=== PATIENT | male | born 1975 | race Caucasian/White ===

== ENCOUNTER 2017-09-25 15:38 | Emergency (ER) | payer BC ==
[2017-09-25 15:42] VITALS: BP 123/81; PULSE 116; RESP 20; TEMP 97.9; O2SAT 100
--- NOTE | 2017-09-25 16:56 | C.PDOC ---
Time Seen by Provider: 09/25/17 16:04 Chief Complaint (Nursing): Substance Abuse Past Medical History Vital Signs: Last Vital Signs Temp 97.9 F 09/25/17 15:40 Pulse 116 H 09/25/17 15:40 Resp 20 09/25/17 15:40 BP 123/81 09/25/17 15:40 Pulse Ox 100 09/25/17 15:40 - Social History Hx Alcohol Use: Yes Hx Substance Use: No - Immunization History Hx Tetanus Toxoid Vaccination: No Hx Influenza Vaccination: No ED Course And Treatment O2 Sat by Pulse Oximetry: 100 Disposition - Disposition Referrals: Crow Morin MD [Staff Provider] - Disposition: HOME/ ROUTINE Condition: STABLE Additional Instructions: follow up with Dr. Morin in 2 days call to make an appointment return to ER if symptoms worsens or progress Instructions: Alcohol Abuse and Alcoholism (DC) Forms: General Discharge Instructions, [facility] ([place]) - Clinical Impression Clinical Impression: Alcohol abuse
--- NOTE | 2017-09-25 16:56 | C.PDOC ---
History Of Present Illness 42 y/o male presents for alcohol abuse. States that his last drink was 1 week ago. Requesting a note to go back to work. Denies any suicidal ideation, homicidal ideation, or hallucinations. Time Seen by Provider: 09/25/17 16:04 Chief Complaint (Nursing): Substance Abuse History Per: Patient History/Exam Limitations: no limitations Past Medical History Reviewed: Historical Data, Nursing Documentation, Vital Signs Vital Signs: Last Vital Signs Temp 97.9 F 09/25/17 15:40 Pulse 116 H 09/25/17 15:40 Resp 20 09/25/17 15:40 BP 123/81 09/25/17 15:40 Pulse Ox 100 09/25/17 16:57 - Medical History PMH: No Chronic Diseases Other PMH: Alcohol abuse Surgical History: No Surg Hx Family History: States: No Known Family Hx - Social History Hx Alcohol Use: Yes Hx Substance Use: No - Immunization History Hx Tetanus Toxoid Vaccination: No Hx Influenza Vaccination: No Review Of Systems Except As Marked, All Systems Reviewed And Found Negative. Physical Exam - Physical Exam Appears: Non-toxic, No Acute Distress Skin: Normal Color, Warm, Dry Head: Atraumatic, Normacephalic Eye(s): bilateral: Normal Inspection, PERRL, EOMI Nose: Normal Oral Mucosa: Moist Neck: Normal ROM, Supple Chest: Symmetrical Cardiovascular: Rhythm Regular, No Murmur Respiratory: Normal Breath Sounds, No Accessory Muscle Use Gastrointestinal/Abdominal: Soft, No Tenderness, No Distention Extremity: Bilateral: Atraumatic, Normal Color And Temperature, Normal ROM Neurological/Psych: Oriented x3, Normal Speech Gait: Steady ED Course And Treatment O2 Sat by Pulse Oximetry: 100 (RA) Pulse Ox Interpretation: Normal Medical Decision Making Medical Decision Making: Initial Impression: Alcohol abuse Time: 16:40 Plan: Crisis to provide list of rehab resources. Patient is not in withdrawal or showing signs of DTs on examination. Will discharge at this time. Patient instructed to follow up with rehab facility and primary doctor. Disposition Counseled Patient/Family Regarding: Diagnosis, Need For Followup - Disposition Referrals: Crow Morin MD [Staff Provider] - Disposition: HOME/ ROUTINE Disposition Time: 16:51 Condition: STABLE Additional Instructions: follow up with Dr. Morin in 2 days call to make an appointment return to ER if symptoms worsens or progress Instructions: Alcohol Abuse and Alcoholism (DC) Forms: General Discharge Instructions, [facility] ([place]) - POA Present On Arrival: None - Clinical Impression Clinical Impression: Alcohol abuse - Scribe Statement The provider has reviewed the documentation as recorded by the Nemo Basurto Provider Attestation: All medical record entries made by the Michaelibandres were at my direction and personally dictated by me. I have reviewed the chart and agree that the record accurately reflects my personal performance of the history, physical exam, medical decision making, and the department course for this patient. I have also personally directed, reviewed, and agree with the discharge instructions and disposition.
== END 2017-09-25 17:01 | disposition home or self-care (01) ==
LOC: C.ER 15:38
DX: F10.10 Alcohol abuse, uncomplicated (principal); Y90.9 Presence of alcohol in blood, level not specified

== ENCOUNTER 2018-11-04 10:00 | Emergency (ER) | payer SELFPAY ==
[2018-11-04 11:21] VITALS: BP 124/74; PULSE 84; RESP 16; TEMP 98.6; O2SAT 97
--- NOTE | 2018-11-04 16:14 | C.PDOC ---
History Of Present Illness 43 y/o male comes in to ED requesting detox from alcohol. States he last drank last night. Patient drinks approximately 600ml of vodka daily. Patient has no physical complaints at this time. Chief Complaint (Nursing): Substance Abuse History Per: Patient History/Exam Limitations: no limitations Onset/Duration Of Symptoms: Days Current Symptoms Are (Timing): Still Present Past Medical History Reviewed: Historical Data, Nursing Documentation, Vital Signs Vital Signs: Last Vital Signs Temp 98.6 F 11/04/18 11:20 Pulse 84 11/04/18 11:20 Resp 16 11/04/18 11:20 BP 124/74 11/04/18 11:20 Pulse Ox 97 11/04/18 11:20 Family History: States: No Known Family Hx - Social History Hx Alcohol Use: Yes Hx Substance Use: No - Immunization History Hx Tetanus Toxoid Vaccination: No Hx Influenza Vaccination: No Review Of Systems Except As Marked, All Systems Reviewed And Found Negative. Constitutional: Negative for: Fever Gastrointestinal: Negative for: Vomiting Neurological: Positive for: Other (alcohol abuse) Physical Exam - Physical Exam Appears: Non-toxic, No Acute Distress Skin: Warm, Dry Head: Atraumatic Eye(s): bilateral: Normal Inspection Oral Mucosa: Moist Neck: Supple Cardiovascular: Rhythm Regular Respiratory: Normal Breath Sounds Gastrointestinal/Abdominal: Soft Extremity: Bilateral: Atraumatic, Normal ROM Neurological/Psych: Oriented x3, Normal Speech ED Course And Treatment O2 Sat by Pulse Oximetry: 97 (RA) Pulse Ox Interpretation: Normal Medical Decision Making Medical Decision Making: Patient spoke to crisis team for future evaluation. Disposition - Disposition Referrals: [facility] [Outside] Disposition: HOME/ ROUTINE Disposition Time: 10:55 Condition: GOOD Additional Instructions: AZALIA MARTINI, thank you for letting us take care of you today. The emergency medical care you received today was directed at your acute symptoms. If you were prescribed any medication, please fill it and take as directed. It may take several days for your symptoms to resolve. Return to the Emergency Department if your symptoms worsen, do not improve, or if you have any other problems. Please contact your doctor or call one of the physicians/clinics you have been referred to that are listed on the Patient Visit Information form that is included in your discharge packet. Bring any paperwork you were given at discharge with you along with any medications you are taking to your follow up visit. Our treatment cannot replace ongoing medical care by a primary care provider outside of the emergency department. Thank you for allowing the [facility] team to be part of your care today. Follow up using the information given to you by our crisis team. Instructions: Alcohol Abuse and Alcoholism (DC) Forms: [facility] ([place]) - Clinical Impression Clinical Impression: Alcohol abuse - Scribe Statement The provider has reviewed the documentation as recorded by the Nemo Adams Provider Attestation: All medical record entries made by the Nemo were at my direction and personally dictated by me. I have reviewed the chart and agree that the record accurately reflects my personal performance of the history, physical exam, medical decision making, and the department course for this patient. I have also personally directed, reviewed, and agree with the discharge instructions and disposition.
== END 2018-11-04 11:21 | disposition home or self-care (01) ==
LOC: C.ER 10:00
DX: F10.10 Alcohol abuse, uncomplicated (principal); Y90.9 Presence of alcohol in blood, level not specified

== ENCOUNTER 2018-11-05 14:47 | Inpatient (IN) | payer MEDICAID, OTHER ==
[2018-11-05 15:54] LABS: BASO # 0.1 K/uL (0.0-0.2); BASO % 1.3 % (0.0-2.0); EOS % 0.4 % (0.0-4.0); HEMOGLOBIN 13.4 g/dL (12.0-18.0); LYMPH # 1.8 K/uL (1.0-4.3); LYMPH % 27.6 % (20.0-40.0); MEAN CELL VOLUME 97.4 fL (80.0-94.0); MEAN CORPUSCULAR HEMOGLOBIN 33.6 pg (27.0-31.0); MEAN CORPUSCULAR HGB CONC 34.5 g/dL (33.0-37.0); MEAN PLATELET VOLUME 9.3 fL (7.2-11.7); MONO # 0.4 K/uL (0.0-0.8); MONO % 6.2 % (0.0-10.0); NEUT # 4.1 K/uL (1.8-7.0); NEUT % 64.5 % (50.0-75.0); NRBC % 0.2 % (0.0-2.0); RBC 3.98 Mil/uL (4.40-5.90); RED CELL DISTRIBUTION WIDTH 14.2 % (11.5-14.5); WHITE BLOOD COUNT 6.4 K/uL (4.8-10.8)
[2018-11-05 16:04] LABS: ALB/GLOB RATIO 1.6 (1.0-2.1); ALBUMIN 4.7 g/dL (3.5-5.0); ALT/SGPT 67 U/L (21-72); AST/SGOT 104 U/L (17-59); BLOOD UREA NITROGEN 6 mg/dL (9-20); CALCIUM 9.5 mg/dl (8.6-10.4); GFR NON-AFRICAN AMERICAN > 60
[2018-11-05 16:09] LABS: SQUAMOUS EPITHIAL < 1 /hpf (0-5); URINE BILIRUBIN NEGATIVE (NEGATIVE); URINE BLOOD NEGATIVE (NEGATIVE); URINE CLARITY Clear (Clear); URINE COLOR Yellow (YELLOW); URINE GLUCOSE (UA) NORMAL (Normal); URINE LEUKOCYTE ESTERASE NEG Leu/uL (Negative); URINE PROTEIN NEGATIVE (NEGATIVE)
[2018-11-05 16:21] LABS: BARBITURATES, UR NEGATIVE (NEGATIVE); OPIATES, UR NEGATIVE (NEGATIVE); PHENCYCLIDINE, UR NEGATIVE (NEGATIVE)
[2018-11-05 16:29] LABS: BENZODIAZEPINES, UR POSITIVE (NEGATIVE)
--- NOTE | 2018-11-05 18:06 | C.PDOC ---
History Of Present Illness 43 year old male presents to the ED requesting detoxification from alcohol. Reports last alcohol drink was this morning. Admits to drinking 600mL of Vodka daily. Denies any physical complaints. Denies any SI/HI. Time Seen by Provider: 11/05/18 14:59 Chief Complaint (Nursing): Substance Abuse History Per: Patient History/Exam Limitations: no limitations Onset/Duration Of Symptoms: Hrs Current Symptoms Are (Timing): Gone Suicide/Self Injury Attempted (Context): None Modifying Factor(s): Alcohol Associated Symptoms: denies: Suicidal Thoughts, Suicidal Plan Past Medical History Reviewed: Historical Data, Nursing Documentation, Vital Signs Vital Signs: Last Vital Signs Temp 98.4 F 11/05/18 17:37 Pulse 99 H 11/05/18 17:37 Resp 18 11/05/18 17:37 BP 129/82 11/05/18 17:37 Pulse Ox 98 11/05/18 17:37 - Medical History PMH: No Chronic Diseases Surgical History: No Surg Hx Family History: States: No Known Family Hx - Social History Hx Alcohol Use: Yes Hx Substance Use: No - Immunization History Hx Tetanus Toxoid Vaccination: No Hx Influenza Vaccination: No Hx Pneumococcal Vaccination: No Review Of Systems Except As Marked, All Systems Reviewed And Found Negative. Constitutional: Negative for: Fever, Chills Cardiovascular: Negative for: Chest Pain Respiratory: Negative for: Shortness of Breath Gastrointestinal: Negative for: Nausea, Vomiting, Abdominal Pain, Diarrhea Psych: Negative for: Suicidal ideation Physical Exam - Physical Exam Appears: Non-toxic, No Acute Distress Skin: Warm, Dry, No Rash Head: Normacephalic Eye(s): bilateral: Normal Inspection Nose: Normal Oral Mucosa: Moist Neck: Supple Chest: Symmetrical Cardiovascular: Rhythm Regular Respiratory: Normal Breath Sounds, No Rales, No Rhonchi, No Wheezing Gastrointestinal/Abdominal: Soft, No Tenderness Neurological/Psych: Oriented x3, Normal Speech Gait: Steady ED Course And Treatment - Laboratory Results Result Diagrams: 11/05/18 15:44 11/05/18 15:44 Lab Results: Total Bilirubin 0.9 mg/dL (0.2-1.3) 11/05/18 15:44 AST 104 U/L (17-59) H 11/05/18 15:44 ALT 67 U/L (21-72) 11/05/18 15:44 Alkaline Phosphatase 99 U/L (38-126) 11/05/18 15:44 Total Protein 7.7 g/dL (6.3-8.3) 11/05/18 15:44 Albumin 4.7 g/dL (3.5-5.0) 11/05/18 15:44 Globulin 3.0 gm/dL (2.2-3.9) 11/05/18 15:44 Albumin/Globulin Ratio 1.6 (1.0-2.1) 11/05/18 15:44 Urine Color Yellow (YELLOW) 11/05/18 15:58 Urine Clarity Clear (Clear) 11/05/18 15:58 Urine pH 7.0 (5.0-8.0) 11/05/18 15:58 Ur Specific [place] 1.018 (1.003-1.030) 11/05/18 15:58 Urine Protein Negative mg/dL (NEGATIVE) 11/05/18 15:58 Urine Glucose (UA) Normal mg/dL (Normal) 11/05/18 15:58 Urine Ketones Negative mg/dL (NEGATIVE) 11/05/18 15:58 Urine Blood Negative (NEGATIVE) 11/05/18 15:58 Urine Nitrate Negative (NEGATIVE) 11/05/18 15:58 Urine Bilirubin Negative (NEGATIVE) 11/05/18 15:58 Urine Urobilinogen 2.0 mg/dL (0.2-1.0) 11/05/18 15:58 Ur Leukocyte Esterase Neg Gay/uL (Negative) 11/05/18 15:58 Urine WBC (Auto) < 1 /hpf (0-5) 11/05/18 15:58 Urine RBC (Auto) 1 /hpf (0-3) 11/05/18 15:58 Ur Squamous Epith Cells < 1 /hpf (0-5) 11/05/18 15:58 O2 Sat by Pulse Oximetry: 98 (RA) Pulse Ox Interpretation: Normal Medical Decision Making Medical Decision Making: Plan - Bloodwork - UA Patient is medically clear for Detox. Patient admitted to Dr. Ramirez's service. Disposition - Disposition Disposition: HOSPITALIZED Disposition Time: 16:15 Condition: STABLE - Clinical Impression Clinical Impression: Alcohol abuse, Alcohol dependence - Scribe Statement The provider has reviewed the documentation as recorded by the Scribe Nirmala Tejada All medical record entries made by the Scribe were at my direction and personally dictated by me. I have reviewed the chart and agree that the record accurately reflects my personal performance of the history, physical exam, medical decision making, and the department course for this patient. I have also personally directed, reviewed, and agree with the discharge instructions and disposition.
--- NOTE | 2018-11-05 19:04 | PCM.BM ---
<Jude Hill - Last Filed: 11/05/18 19:03> Treatment Plan Problems - Problems identified on initial assessmt Defensive Coping Time Initiated: 19:03 Date resolved: 11/05/18 Assessment reference: NA Status: Active Denial Date Initiated: 11/05/18 Time Initiated: 19:04 Assessment reference: NA Status: Active Knowledge Deficit: Alcohol Use Date Initiated: 11/05/18 Time Initiated: 19:04 Assessment reference: NA Status: Active - Milieu Protocol Maintain good personal hygiene: daily Encourage regular showers, daily Remind patient to perform daily oral care, daily Assist patient to perform ADL's Conduct patient checks and document Observation sheet: Q15 minutes Maintain personal safety: every shift Educate patient to report safety concerns to staff, every shift Monitor environment for contraband/sharps Medication safety: Monitor for expected outcome, potential side effects: every shift, Assess barriers to learning: every shift, Assess readiness for medication education: every shift <Arthur Ramirez - Last Filed: 11/06/18 11:58> - Diagnosis (1) Alcohol dependence Status: Acute Interventions: 11/06/18 11:58 * Assess 7x/week regarding severity of withdrawal * Educate regarding risks, benefits, side effects and alternatives of medications * Use Motivational Interviewing for abstinence * Use CBT for relapse prevention * Medication management for withdrawal symptoms * Encourage medication assisted treatment *
[2018-11-06] MEDS: Multiple Vitamins Tab PO SCH (10:00)
--- NOTE | 2018-11-06 10:30 | PCM.PSYCH ---
Initial Psychiatric Evaluation - Initial Psychiatric Evaluation Type of Admission: Voluntary Legal Status: Capacity Chief Complaint (in patient's own words): "Anxious" History of Present Illness and Precipitating Events: The pt is seen, chart reviewed, case discussed He is a 43 yo -[place] male, lives with brother, unemployed, with no child. He drinks 600 ml. vodka for 20 years. He had 1 detox and rehab in [facility] and once at [facility]. He reports significant wdw sxs when he stops drinking but less now. He never had seizures or DTs No drugs or cigarettes No medical issues or family psych hx He has depression and he sometimes wishes he were . No plans to harm himself or others. Current Medications: Active Medications Generic Name Dose Route Start Last Admin Trade Name Freq PRN Reason Stop Dose Admin Chlordiazepoxide 25 mg 11/06/18 10:23 Librium PO Q4 PRN Symptoms of alcohol withdrawl Clonidine HCl 0.1 mg 11/05/18 19:25 Catapres PO Q4H PRN Symptoms of alcohol withdrawl Folic Acid 1 mg 11/06/18 10:00 11/06/18 10:01 Folic Acid PO 1 mg DAILY BLADE Administration Gabapentin 300 mg 11/06/18 10:00 11/06/18 10:00 Neurontin PO 300 mg BID BLADE Administration Hydroxyzine HCl 50 mg 11/05/18 19:26 Atarax PO Q6H PRN Anxiety Ibuprofen 600 mg 11/05/18 19:26 Motrin Tab PO Q6H PRN Pain, moderate (4-7) Multivitamins 1 tab 11/06/18 10:00 11/06/18 10:00 Hexavitamin PO 1 tab DAILY BLADE Administration Thiamine HCl 100 mg 11/06/18 10:00 11/06/18 10:00 Vitamin B1 Tab PO 100 mg DAILY BLADE Administration Trazodone HCl 50 mg 11/05/18 19:25 Desyrel PO HS PRN Insomnia Past Psychiatric History - Past Psychiatric History Previous Treatment History: None Pertinent Medical Hx (Current Medical&Sleep Prob, Allergies): Allergies Allergy/AdvReac Type Severity Reaction Status Date / Time No Known Allergies Allergy Verified 11/05/18 14:55 No Known Home Med 09/25/17 Review of Systems - Psychiatric Psychiatric: Abnormal Sleep Pattern, Anhedonia, Anxiety, Change in Appetite, Depression, Difficulty Concentrating. absent: Hallucinations, Homicidal Ideation, Paranoia, Suicidal Ideation Mental Status Examination - Personal Presentation Personal Presentation: Looks stated age - Affect Affect: Constricted - Motor Activity Motor Activity: Calm - Reliability in Providing Information Reliability in Providing Information: Good - Speech Speech: Organized - Mood Mood: Depressed, Anxious - Formal Thought Process Formal Thought Process: No Impairment - Cognitive Functions Orientation: Person, Place, Situation, Time Sensorium: Alert Attention/Concentration: Easily distracted Estimate of Intelligence: Average Judgement: Intact, as evidence by: Insight regarding need for hospitalization Memory: Recent intact, as evidence by: Ability to recall events of the day, Remote intact, as evidenced by: Abilit to recall sig. life events - Risk Risk: Withdrawal, Diminished functioning - Strength & Assets Inventory Strength & Assets Inventory: Cooperative - Limitations Limitations: Other DSM 5 DX - DSM 5 DSM 5 Diagnosis: Alcohol withdrawal Alcohol use d/o - severe Major depression, single, severe Tobacco use d/o - moderate - Recommended/Plan of Treatment Treatment Recommendations and Plan of Treatment: Taper with librium when he starts to withdraw Lexapro for depression Gabapentin for augmentation if needed As needed medications All risks, benefits and alternatives of the meds discussed, and the pt agreed and understood. Attend groups and activities Supportive therapy and psychoeducation OK for abstinence CBT for relapse prevention Encourage MAT Refer to rehab or IOP, and self-help groups Teach healthy lifestyle methods, i.e. diet, exercise, meditation Smoking cessation with OK Nicotine patch if needed 34 min Projected ELOS: 4-5 days - Smoking Cessation Smoking Cessation Initiated: Yes
[2018-11-07] MEDS: Multiple Vitamins Tab PO SCH (10:19)
[2018-11-07 13:55] VITALS: O2SAT 99
[2018-11-07 20:58] VITALS: RESP 18
--- NOTE | 2018-11-07 21:44 | PCM.PYCHPN ---
Psychiatric Progress Note - Psychiatric Progress Note Patient seen today, length of contact: 16 Patient Chief Complaint: "I feel shaky and I am not eating" Problems Identified/Issues Discussed: The pt is seen, chart reviewed, case is discussed with staff. The pt is compliant with medications and reports no side-effects. Symptoms are improving but needs more time to stabilize and to avoid relapse. Pt attends groups and activities. Support given, psycho-education provided. After care discussed. Medication Change: No Medical Record Reviewed: Yes Mental Status Examination - Cognitive Function Orientation: Person, Place, Situation, Time Attention: WNL Concentration: WNL Association: WNL Fund of Knowledge: WN - Mood Mood: Depressed, Anxious - Affect Affect: Constricted - Speech Speech: Appropriate - Formal Thought Process Formal Thought Process: No Impairment - Suicidal Ideation Suicidal Ideation: No - Homicidal Ideation Homicidal Ideation: No Goal/Treatment Plan - Goal/Treatment Plan Need for Continued Stay: Remain at risks for inpatient hospitalization, Severe depression anxiety, Discharge may exacerbated symptoms Progress Toward Problem(s) and Goals/Treatment Plan: Continue medications Support and psychoeducation daily Attend groups and activities daily Individual therapy After care planning by BRYAN and the team Estimated Date of D/C: 11/08/18 - Smoking Cessation Smoking Cessation Initiated: No
[2018-11-08 06:16] VITALS: PULSE 86
[2018-11-08] MEDS: Multiple Vitamins Tab PO SCH (09:26)
[2018-11-08 10:17] VITALS: BP 106/72; TEMP 97.6
--- NOTE | 2018-11-08 21:46 | PCM.PYCHDC ---
Mental Status Examination - Mental Status Examination Orientation: Person, Place, Situation, Time Memory: Intact Mood: Neutral Affect: Broad Speech: Appropriate Attention: WNL Concentration: WNL Association: WNL Fund of Knowledge: WNL Formal Thought Process: No Impairment Suicidal Ideation: No Current Homicidal Ideation?: No Discharge Summary - Discharge Note Reason for Hospitalization: Alcohol Detox Consultations:: List each consultation separately and include: 1. Reason for request. 2. Findings. 3. Follow-up Summary of Hospital Course include:: 1. Description of specific treatment plan utilized for patients during their course of treatmen. 2. Summarize the time- course for resolution of acute symptoms and/or regressed behaviors. 3. Describe issues identified and worked on during hospitalization. 4. Describe medication utilized. 5. Describe medical problems identified and treated. 6. Reassessment of suicide risk Summary of Hospital Course: The pt was admitted and started on treatment with psychotherapy, support, psychoeducation and medications. All the risks and benefits of medications are discussed and the patient understood and agreed. TN and CBT used. The pt attended groups and activities, as well as milieu therapy. The pt improved with the treatments provided. After care discussed with the patient. - Final Diagnosis (DSM 5) Condition upon Discharge: STABLE Disposition: HOME/ ROUTINE Follow-up Treatment Plan: Continue below medications after discharge. Lexapro 5mg daily, and Gabapentin 300mg BID Follow after care plan as discussed. Use relapse prevention skills Return to ER or call 911 if suicidal, homicidal or symptoms relapse. Stay away from stress, alcohol and drugs. See primary doctor regularly and get labs. - Smoking Cessation Smoking Cessation Medication prescribed: No - Antipsychotic Medications Pt discharged on 2 or more routine antipsychotic medications: No
== END 2018-11-08 12:15 | disposition home or self-care (01) | DRG 772 ==
LOC: C.ER 14:47 → C.7D 17:18
PROVIDERS: ADMIT Psychiatry & Neurology Psychiatry; ATTEND Psychiatry & Neurology Psychiatry
PROC: HZ2ZZZZ Detoxification Services for Substance Abuse Treatment (ICD-10-PCS; principal; 2018-11-05)
PROC: HZ46ZZZ Group Counseling for Substance Abuse Treatment, Psychoeducation (ICD-10-PCS; 2018-11-05)
PROC: HZ59ZZZ Individual Psychotherapy for Substance Abuse Treatment, Supportive (ICD-10-PCS; 2018-11-05)
PROC: GZ3ZZZZ Medication Management (ICD-10-PCS; 2018-11-05)
DX: F10.230 Alcohol dependence with withdrawal, uncomplicated (principal); F32.2 Major depressive disorder, single episode, severe without psychotic features; Z72.0 Tobacco use